=== PATIENT | female | born 1935 | race Hispanic/Latino ===

== ENCOUNTER 2022-03-17 17:04 | Inpatient (IN) | payer MEDICARE ==
--- NOTE | 2022-03-18 08:23 | Consultation ---
History of Present Illness - Reason for Consult Consult date: 03/18/22 Medical consult Requesting physician: CRISTAL BAINS - History of Present Illness Patient with significant past medical history of dementia dyslipidemia was admitted [facility] with history of danger to self failure of outpatient treatment and severe anxiety and depression hospitalist service was consulted for medical consult and medical management Past History Past Medical History: hyperlipidemia, other (Dementia, depression and anxiety) Past Surgical History: No surgical history Social history: denies: smoking, alcohol abuse, prescription drug abuse Family history: denies: no significant family history Medications and Allergies Allergies Allergy/AdvReac Type Severity Reaction Status Date / Time adhesive tape Allergy Unknown Verified 03/18/22 01:11 diazepam [From Valium] Allergy Unknown Verified 03/18/22 01:11 Latex, Natural Rubber Allergy Unknown Verified 03/18/22 01:11 meperidine [From Demerol] Allergy Unknown Verified 03/18/22 01:11 morphine Allergy Unknown Verified 03/18/22 01:11 procaine Allergy Unknown Verified 03/18/22 01:11 Home Medications Medication Instructions Recorded Confirmed Last Taken Type Atorvastatin [Lipitor Tab] 80 mg PO QHS 03/18/22 03/18/22 Unknown History Duloxetine HCl [Drizalma Sprinkle] 60 mg PO DAILY 03/18/22 03/18/22 Unknown History Esomeprazole Magnesium [NexIUM] 40 mg PO QDAY 03/18/22 03/18/22 Unknown History Melatonin [Melatonin 5MG CAP] 5 mg PO HS 03/18/22 03/18/22 Unknown History Memantine [Namenda] 10 mg PO BID 03/18/22 03/18/22 Unknown History Mirtazapine [Remeron] 15 mg PO HS 03/18/22 03/18/22 Unknown History QUEtiapine [SEROquel] 150 mg PO HS 03/18/22 03/18/22 Unknown History cephALEXin [Keflex] 500 mg PO Q12HR 03/18/22 03/18/22 Unknown History clonazePAM [ Klonopin] 0.5 mg PO BID 03/18/22 03/18/22 Unknown History Review of Systems Constitutional: no weight loss, no weight gain, no fatigue, no weakness Ears, nose, mouth and throat: no nasal congestion, no nasal discharge Cardiovascular: no chest pain, no orthopnea Respiratory: no cough, no shortness of breath Gastrointestinal: no abdominal pain, no nausea, no vomiting Genitourinary Female: no menorrhagia, no dysuria Musculoskeletal: no myalgias, no arthritis Integumentary: no rash, no lesions Neurological: no seizures, no syncope Psychiatric: anxiety, depression Endocrine: no cold intolerance, no heat intolerance Hematologic/Lymphatic: no easy bruising, no easy bleeding Allergic/Immunologic: no urticaria, no allergic rhinitis Exam - Constitutional Vitals: Temp Pulse Resp BP Pulse Ox 98.0 F 85 16 128/65 98 03/18/22 00:29 03/18/22 00:29 03/18/22 00:29 03/18/22 00:03/18/22 00:29 General appearance: Present: mild distress (Wants to go home), well-nourished - EENT Eyes: Present: PERRL, EOM intact - Neck Neck: Present: supple, normal ROM - Respiratory Respiratory effort: normal Respiratory: bilateral: diminished, negative: rales, rhonchi, wheezing - Cardiovascular Rhythm: regular Heart Sounds: Present: S1 & S2 - Extremities Extremities: no ischemia, No edema - Abdominal General gastrointestinal: Present: soft, non-tender, non-distended, normal bowel sounds - Integumentary Integumentary: Present: clear, warm - Musculoskeletal Musculoskeletal: strength equal bilaterally - Psychiatric Psychiatric: appropriate mood/affect, cooperative - Neurologic Neurologic: moves all extremities Results - Labs CBC & Chem 7: 03/18/22 13:16 03/18/22 13:16 Assessment and Plan -- Dementia; Can resume home medications, supportive care -- Dyslipidemia; Statin and low-cholesterol diet --Gastroesophageal reflux disease; Continue Protonix - Depression; Management per psychiatry -- DVT prophylaxis; SCDs while resting, ambulate as tolerated --Full CODE STATUS Closely monitor the patient and adjust management as needed Plan of care reviewed with the patient and her nurse Thank you for this consultation We will follow the patient along with you Call us with questions
--- NOTE | 2022-03-18 11:08 | History and Physical Report ---
GP History & Physical - History of Present Illness Date of admission: 03/17/22 Date of Examination: 03/18/22 Reason for Admission: Danger to self, Failure of Outpatient Treatment, Severe anxiety/depression History of Present Illness: The patient was seen today. Admission note states the patient was upset over her boyfriend breaking-up with her. When she asked her son to come over and talk to her he did not. She then told her son she was going to OD on her sleeping medication. Patient now states she "really didn't mean it" During the evaluation, the patient says she is doing fine. She says she made a stupid statement about hurting herself, but didn't mean it. She says she has a history of depression and anxiety, and takes cymbalta, and klonopin. The patient denies hallucinations. She says she lives at an Independent living facility. PAST PSYCHIATRIC HISTORY: Diagnoses: Depression Suicide attempts or Self-harm behavior: Denies Prior psychiatric hospitalizations: Denies Substance Abuse history: Denies Previous psychiatric medications tried: Cymbalta, klonopin Outpatient treatment: Yes PAST MEDICAL HISTORY: None reported Family Psychiatric History: None reported or documented SOCIAL HISTORY Marital Status: Living Arrangements: Independent living facility Employment Status: Retired Access to guns/weapons: Denies Education: History of Abuse: Denies Legal History: Denies REVIEW OF SYSTEMS Constitutional: Negative for weight loss ENT: Negative for stridor Respiratory: Negative for cough or hemoptysis All other systems reviewed and are negative MENTAL STATUS General Appearance and Behavior: age appropriate, good eye contact, cooperative, calm, pleasant Cooperation: Cooperative Psychomotor Behavior: within normal limits Mood: Calm Affect and affective range: Congruent with stated mood Thought Process: goal oriented Thought Content: reality oriented Speech: Normal volume and Regular rate and rhythm Suicidal Ideation: Denies Homicidal Ideation: Denies HI Hallucinations: Denies Delusions: None elicited Impulse Control: Fair Insight and Judgment: Good Memory: Good Attention: Attentive Orientation: alert and oriented Diagnoses: Major Depressive Disorder Treatment Plan Patient will be admitted for inpatient psychiatric evaluation, medication adjustment and close monitoring The patient's behavior, mood, sleep and appetite will be closely monitored. Patient will be enrolled in individual and group therapeutic sessions and enco uraged to attend. Patient will be provided with a safe and structured environment. Patient's physical health needs will be addressed by the Hospitalist. Hospitalist Consulted Labs including CBC, CMP, Lipid profile and Hemoglobin A1C ordered Social Assessment will be completed and the Reel Tender will work with patient and family to ensure a suitable and safe disposition Medication adjustment will be made as clinically indicated Continue home medications Usual Wellness Oriental Orthodox/Preservation: The patient agreed on the treatment plan, understood the risk, benefit, alternative treatment, potential consequence of no treatment, and gave informed consent. Legal Status: Involuntary Reaction to Hospitalization: Accepting Case staffed with Dr. Love Legal Status: Voluntary Reaction to Hospitalization: Accepting Medications and Allergies Allergies Allergy/AdvReac Type Severity Reaction Status Date / Time adhesive tape Allergy Unknown Verified 03/18/22 01:11 diazepam [From Valium] Allergy Unknown Verified 03/18/22 01:11 Latex, Natural Rubber Allergy Unknown Verified 03/18/22 01:11 meperidine [From Demerol] Allergy Unknown Verified 03/18/22 01:11 morphine Allergy Unknown Verified 03/18/22 01:11 procaine Allergy Unknown Verified 03/18/22 01:11 Home Medications Medication Instructions Recorded Confirmed Last Taken Type Atorvastatin [Lipitor Tab] 80 mg PO QHS 03/18/22 03/18/22 Unknown History Duloxetine HCl [Drizalma Sprinkle] 60 mg PO DAILY 03/18/22 03/18/22 Unknown History Esomeprazole Magnesium [NexIUM] 40 mg PO QDAY 03/18/22 03/18/22 Unknown History Melatonin [Melatonin 5MG CAP] 5 mg PO HS 03/18/22 03/18/22 Unknown History Memantine [Namenda] 10 mg PO BID 03/18/22 03/18/22 Unknown History Mirtazapine [Remeron] 15 mg PO HS 03/18/22 03/18/22 Unknown History QUEtiapine [SEROquel] 150 mg PO HS 03/18/22 03/18/22 Unknown History cephALEXin [Keflex] 500 mg PO Q12HR 03/18/22 03/18/22 Unknown History clonazePAM [ Klonopin] 0.5 mg PO BID 03/18/22 03/18/22 Unknown History Results - Results Labs/Vitals: Laboratory Last Values POC Glucose 89 mg/dL (70-105) 03/18/22 06:35 Last Vital Signs Temp 98.5 F 03/18/22 07:59 Pulse 89 03/18/22 07:59 Resp 16 03/18/22 07:59 BP 118/57 03/18/22 07:59 Pulse Ox 96 03/18/22 07:59 Physical Examination - Constitutional Vitals: Vital Signs Temp Pulse Resp BP Pulse Ox 98.5 F 89 16 118/57 96 03/18/22 07:59 03/18/22 07:59 03/18/22 07:59 03/18/22 07:59 03/18/22 07:59 Temperature -Last 24 Hours Temperature 98.5 F Temperature 98.0 F Mental Status Exam - Vital signs Last Vital Signs Temp 98.5 F 03/18/22 07:59 Pulse 89 03/18/22 07:59 Resp 16 03/18/22 07:59 BP 118/57 03/18/22 07:59 Pulse Ox 96 03/18/22 07:59 Physician Certification - Certification Statement Physician Certification Statement: This is an acknowledgement statement that ALVINA NEELY is a 86 year old F who requires inpatient psychiatric admission for treatment which could reasonably be expected to improve the patient's condition for Estimated period of time patient will need to remain in the hospital: [ ] Plan for post-hospital care: [ ]
[2022-03-18] MEDS ORDERED: NON-FORMULARY EACH (Esomeprazole Magnesium [Nexium] 40 MG Capsule.Dr) PO SCH (11:15)
[2022-03-18] MEDS ORDERED: NON-FORMULARY EACH (Duloxetine Hcl [Drizalma Sprinkle] 60 MG Cap.Dr.Spr) PO SCH (11:15)
[2022-03-18] MEDS: DULoxetine 30 MG CAP PO SCH (13:03)
[2022-03-18] MEDS: PANTOPRAZOLE 40 MG TAB PO SCH (13:03)
[2022-03-18 13:54] LABS: Basophils % (Auto) 0.4 % (0.0-1.8); Eosinophils % (Auto) 0.1 % (0.0-4.3); Hematocrit 40.5 % (30.3-42.9); Hemoglobin 13.5 gm/dl (10.1-14.3); Lymphocytes # (Auto) 1.4 K/mm3 (1.2-5.4); Lymphocytes % (Auto) 17.1 % (13.4-35.0); Mean Corpuscular HGB Conc 33 % (30-34); Mean Corpuscular Volume 90 fl (79-97); Monocytes # (Auto) 0.7 K/mm3 (0.0-0.8); Monocytes % (Auto) 9.2 % (0.0-7.3); Platelet Count 137 K/mm3 (140-440); Red Blood Count 4.49 M/mm3 (3.65-5.03); Red Cell Distribution Width 15.1 % (13.2-15.2)
[2022-03-18] MEDS: clonazePAM 0.5 MG TAB PO SCH ×2 (14:06→21:11)
[2022-03-18 14:11] LABS: Albumin 4.4 g/dL (3.9-5); Calcium 9.8 mg/dL (8.4-10.2); Chol/HDL Ratio 2.82 %
[2022-03-18] MEDS: MEMANTINE 10 MG TAB PO SCH (21:12)
[2022-03-18] MEDS: MIRTAZAPINE 15 MG TAB PO SCH (21:12)
[2022-03-18] MEDS: QUEtiapine 100 MG TAB PO SCH (21:12)
[2022-03-18] MEDS: MELATONIN 5 MG TAB PO SCH (21:12)
[2022-03-18] MEDS ORDERED: clonazePAM 0.5 MG TAB PO SCH (22:00)
[2022-03-18] MEDS ORDERED: NON-FORMULARY EACH (Atorvastatin [Lipitor] 80 MG Tablet) PO SCH (22:00)
[2022-03-18] MEDS ORDERED: NON-FORMULARY EACH (Melatonin [Melatonin 5mg Cap] 5 MG Capsule) PO SCH (22:00)
--- NOTE | 2022-03-19 08:57 | Progress Note ---
Subjective Date of service: 03/19/22 Principal diagnosis: MDD Subjective Comment: The patient was seen today. She is lying in bed asleep. She easily arouses. She says she slept well. She denies SI/HI and hallucinations. REVIEW OF SYSTEMS Constitutional: Negative for weight loss ENT: Negative for stridor Respiratory: Negative for cough or hemoptysis All other systems reviewed and are negative MENTAL STATUS General Appearance and Behavior: age appropriate, good eye contact, cooperative, calm, pleasant Cooperation: Cooperative Psychomotor Behavior: within normal limits Mood: Calm Affect and affective range: Congruent with stated mood Thought Process: goal oriented Thought Content: reality oriented Speech: Normal volume and Regular rate and rhythm Suicidal Ideation: Denies Homicidal Ideation: Denies HI Hallucinations: Denies Delusions: None elicited Impulse Control: Fair Insight and Judgment: Good Memory: Good Attention: Attentive Orientation: alert and oriented Diagnoses: Major Depressive Disorder Treatment Plan Patient will be admitted for inpatient psychiatric evaluation, medication adjustment and close monitoring The patient's behavior, mood, sleep and appetite will be closely monitored. Patient will be enrolled in individual and group therapeutic sessions and encouraged to attend. Patient will be provided with a safe and structured environment. Patient's physical health needs will be addressed by the Hospitalist. Hospitalist Consulted Labs including CBC, CMP, Lipid profile and Hemoglobin A1C ordered Social Assessment will be completed and the Director Loss Prevention will work with patient and family to ensure a suitable and safe disposition Medication adjustment will be made as clinically indicated Continue home medications Usual Wellness Rastafari/Preservation: The patient agreed on the treatment plan, understood the risk, benefit, alternative treatment, potential consequence of no treatment, and gave informed consent. Legal Status: Involuntary Reaction to Hospitalization: Accepting Case staffed with Dr. Love Medications and Allergies Allergies Allergy/AdvReac Type Severity Reaction Status Date / Time adhesive tape Allergy Unknown Verified 03/18/22 01:11 diazepam [From Valium] Allergy Unknown Verified 03/18/22 01:11 Latex, Natural Rubber Allergy Unknown Verified 03/18/22 01:11 meperidine [From Demerol] Allergy Unknown Verified 03/18/22 01:11 morphine Allergy Unknown Verified 03/18/22 01:11 procaine Allergy Unknown Verified 03/18/22 01:11 Home Medications Medication Instructions Recorded Confirmed Last Taken Type Atorvastatin [Lipitor Tab] 80 mg PO QHS 03/18/22 03/18/22 Unknown History Duloxetine HCl [Drizalma Sprinkle] 60 mg PO DAILY 03/18/22 03/18/22 Unknown History Esomeprazole Magnesium [NexIUM] 40 mg PO QDAY 03/18/22 03/18/22 Unknown History Melatonin [Melatonin 5MG CAP] 5 mg PO HS 03/18/22 03/18/22 Unknown History Memantine [Namenda] 10 mg PO BID 03/18/22 03/18/22 Unknown History Mirtazapine [Remeron] 15 mg PO HS 03/18/22 03/18/22 Unknown History QUEtiapine [SEROquel] 150 mg PO HS 03/18/22 03/18/22 Unknown History cephALEXin [Keflex] 500 mg PO Q12HR 03/18/22 03/18/22 Unknown History clonazePAM [ Klonopin] 0.5 mg PO BID 03/18/22 03/18/22 Unknown History Active Meds: Active Medications Atorvastatin Calcium (Atorvastatin 40 Mg Tab) 80 mg PO QHS [facility] Last Admin: 03/18/22 21:11 Dose: 80 mg Clonazepam (Clonazepam 0.5 Mg Tab) 0.5 mg PO BID [facility] Last Admin: 03/18/22 21:11 Dose: 0.5 mg Duloxetine HCl (Duloxetine 30 Mg Cap) 60 mg PO QDAY [facility] Last Admin: 03/18/22 13:03 Dose: 60 mg Melatonin (Melatonin 5 Mg Tab) 5 mg PO QHS [facility] Last Admin: 03/18/22 21:12 Dose: 5 mg Memantine (Memantine 10 Mg Tab) 10 mg PO BID [facility] Last Admin: 03/18/22 21:12 Dose: 10 mg Mirtazapine (Mirtazapine 15 Mg Tab) 15 mg PO [facility] Last Admin: 03/18/22 21:12 Dose: 15 mg Pantoprazole Sodium (Pantoprazole 40 Mg Tab) 40 mg PO DAILY [facility] Last Admin: 03/18/22 13:03 Dose: 40 mg Quetiapine Fumarate (Quetiapine 100 Mg Tab) 150 mg PO [facility] Last Admin: 03/18/22 21:12 Dose: 150 mg Results - Results Labs/Vitals: Laboratory Last Values WBC 8.1 K/mm3 (4.5-11.0) 03/18/22 13:16 RBC 4.49 M/mm3 (3.65-5.03) 03/18/22 13:16 Hgb 13.5 gm/dl (10.1-14.3) 03/18/22 13:16 Hct 40.5 % (30.3-42.9) 03/18/22 13:16 MCV 90 fl (79-97) 03/18/22 13:16 MCH 30 pg (28-32) 03/18/22 13:16 MCHC 33 % (30-34) 03/18/22 13:16 RDW 15.1 % (13.2-15.2) 03/18/22 13:16 Plt Count 137 K/mm3 (140-440) L 03/18/22 13:16 Lymph % (Auto) 17.1 % (13.4-35.0) 03/18/22 13:16 Snyder % (Auto) 9.2 % (0.0-7.3) H 03/18/22 13:16 Eos % (Auto) 0.1 % (0.0-4.3) 03/18/22 13:16 Baso % (Auto) 0.4 % (0.0-1.8) 03/18/22 13:16 Lymph # (Auto) 1.4 K/mm3 (1.2-5.4) 03/18/22 13:16 Snyder # (Auto) 0.7 K/mm3 (0.0-0.8) 03/18/22 13:16 Eos # (Auto) 0.0 K/mm3 (0.0-0.4) 03/18/22 13:16 Baso # (Auto) 0.0 K/mm3 (0.0-0.1) 03/18/22 13:16 Seg Neutrophils % 73.2 % (40.0-70.0) H 03/18/22 13:16 Seg Neutrophils # 5.9 K/mm3 (1.8-7.7) 03/18/22 13:16 Sodium 140 mmol/L (137-145) 03/18/22 13:16 Potassium 5.0 mmol/L (3.6-5.0) 03/18/22 13:16 Chloride 104.6 mmol/L (98-107) 03/18/22 13:16 Carbon Dioxide 24 mmol/L (22-30) 03/18/22 13:16 Anion Gap 16 mmol/L 03/18/22 13:16 BUN 23 mg/dL (7-17) H 03/18/22 13:16 Creatinine 1.1 mg/dL (0.6-1.2) 03/18/22 13:16 Estimated GFR 47 ml/min 03/18/22 13:16 BUN/Creatinine Ratio 21 % 03/18/22 13:16 Glucose 99 mg/dL (65-100) 03/18/22 13:16 POC Glucose 89 mg/dL (70-105) 03/18/22 06:35 Hemoglobin A1c 6.6 % (4-6) H 03/18/22 13:16 Calcium 9.8 mg/dL (8.4-10.2) 03/18/22 13:16 Total Bilirubin 0.70 mg/dL (0.1-1.2) 03/18/22 13:16 AST 62 units/L (5-40) H 03/18/22 13:16 ALT 50 units/L (7-56) 03/18/22 13:16 Alkaline Phosphatase 219 units/L (35-129) H 03/18/22 13:16 Total Protein 7.7 g/dL (6.3-8.2) 03/18/22 13:16 Albumin 4.4 g/dL (3.9-5) 03/18/22 13:16 Albumin/Globulin Ratio 1.3 % 03/18/22 13:16 Triglycerides 111 mg/dL (2-149) 03/18/22 13:16 Cholesterol 141 mg/dL (50-199) 03/18/22 13:16 LDL Cholesterol Direct 71 mg/dL (50-130) 03/18/22 13:16 HDL Cholesterol 50 mg/dL (40-59) 03/18/22 13:16 Cholesterol/HDL Ratio 2.82 % 03/18/22 13:16 TSH 1.010 mlU/mL (0.270-4.200) 03/18/22 13:16 Last Vital Signs Temp 97.6 F 03/19/22 07:15 Pulse 87 03/19/22 07:15 Resp 18 03/19/22 07:15 BP 118/64 03/19/22 07:15 Pulse Ox 95 03/19/22 07:15
[2022-03-19] MEDS: MEMANTINE 10 MG TAB PO SCH ×2 (09:06→21:45)
[2022-03-19] MEDS: PANTOPRAZOLE 40 MG TAB PO SCH (09:06)
[2022-03-19] MEDS: DULoxetine 30 MG CAP PO SCH (09:06)
[2022-03-19] MEDS: clonazePAM 0.5 MG TAB PO SCH ×2 (09:45→21:45)
[2022-03-19] MEDS: MIRTAZAPINE 15 MG TAB PO SCH (21:44)
[2022-03-19] MEDS: QUEtiapine 100 MG TAB PO SCH (21:44)
[2022-03-19] MEDS: MELATONIN 5 MG TAB PO SCH (21:45)
[2022-03-20] MEDS: cephALEXin 500 MG CAP PO SCH ×2 (10:16→22:02)
[2022-03-20] MEDS: PANTOPRAZOLE 40 MG TAB PO SCH (10:17)
[2022-03-20] MEDS: DULoxetine 30 MG CAP PO SCH (10:17)
[2022-03-20] MEDS: MEMANTINE 10 MG TAB PO SCH ×2 (10:18→22:02)
[2022-03-20] MEDS: clonazePAM 0.5 MG TAB PO SCH ×2 (10:18→22:02)
--- NOTE | 2022-03-20 13:12 | Progress Note ---
Subjective Date of service: 03/20/22 Principal diagnosis: MDD Subjective Comment: The patient was seen today. She says she slept well and her appetite is good. She denies SI/HI or hallucinations. She says she's starting to feel better. REVIEW OF SYSTEMS Constitutional: Negative for weight loss ENT: Negative for stridor Respiratory: Negative for cough or hemoptysis All other systems reviewed and are negative MENTAL STATUS General Appearance and Behavior: age appropriate, good eye contact, cooperative, calm, pleasant Cooperation: Cooperative Psychomotor Behavior: within normal limits Mood: Calm Affect and affective range: Congruent with stated mood Thought Process: goal oriented Thought Content: reality oriented Speech: Normal volume and Regular rate and rhythm Suicidal Ideation: Denies Homicidal Ideation: Denies HI Hallucinations: Denies Delusions: None elicited Impulse Control: Fair Insight and Judgment: Good Memory: Good Attention: Attentive Orientation: alert and oriented Diagnoses: Major Depressive Disorder Treatment Plan Patient will be admitted for inpatient psychiatric evaluation, medication adjustment and close monitoring The patient's behavior, mood, sleep and appetite will be closely monitored. Patient will be enrolled in individual and group therapeutic sessions and encouraged to attend. Patient will be provided with a safe and structured environment. Patient's physical health needs will be addressed by the Hospitalist. Hospitalist Consulted Labs including CBC, CMP, Lipid profile and Hemoglobin A1C ordered Social Assessment will be completed and the Manager [place] will work with patient and family to ensure a suitable and safe disposition Medication adjustment will be made as clinically indicated Continue home medications Usual Wellness Scientology/Preservation: The patient agreed on the treatment plan, understood the risk, benefit, alte rnative treatment, potential consequence of no treatment, and gave informed consent. Legal Status: Involuntary Reaction to Hospitalization: Accepting Case staffed with Dr. Love Medications and Allergies Allergies Allergy/AdvReac Type Severity Reaction Status Date / Time adhesive tape Allergy Unknown Verified 03/18/22 01:11 diazepam [From Valium] Allergy Unknown Verified 03/18/22 01:11 Latex, Natural Rubber Allergy Unknown Verified 03/18/22 01:11 meperidine [From Demerol] Allergy Unknown Verified 03/18/22 01:11 morphine Allergy Unknown Verified 03/18/22 01:11 procaine Allergy Unknown Verified 03/18/22 01:11 Home Medications Medication Instructions Recorded Confirmed Last Taken Type Atorvastatin [Lipitor Tab] 80 mg PO QHS 03/18/22 03/18/22 Unknown History Duloxetine HCl [Drizalma Sprinkle] 60 mg PO DAILY 03/18/22 03/18/22 Unknown History Esomeprazole Magnesium [NexIUM] 40 mg PO QDAY 03/18/22 03/18/22 Unknown History Melatonin [Melatonin 5MG CAP] 5 mg PO HS 03/18/22 03/18/22 Unknown History Memantine [Namenda] 10 mg PO BID 03/18/22 03/18/22 Unknown History Mirtazapine [Remeron] 15 mg PO HS 03/18/22 03/18/22 Unknown History QUEtiapine [SEROquel] 150 mg PO HS 03/18/22 03/18/22 Unknown History cephALEXin [Keflex] 500 mg PO Q12HR 03/18/22 03/18/22 Unknown History clonazePAM [ Klonopin] 0.5 mg PO BID 03/18/22 03/18/22 Unknown History Active Meds: Active Medications Atorvastatin Calcium (Atorvastatin 40 Mg Tab) 80 mg PO QHS [facility] Last Admin: 03/19/22 21:44 Dose: 80 mg Cephalexin (Cephalexin 500 Mg Cap) 500 mg PO Q12HR [facility]; Protocol Stop: 03/29/22 22:00 Last Admin: 03/20/22 10:16 Dose: 500 mg Clonazepam (Clonazepam 0.5 Mg Tab) 0.5 mg PO BID [facility] Last Admin: 03/20/22 10:18 Dose: 0.5 mg Duloxetine HCl (Duloxetine 30 Mg Cap) 60 mg PO QDAY [facility] Last Admin: 03/20/22 10:17 Dose: 60 mg Melatonin (Melatonin 5 Mg Tab) 5 mg PO QHS [facility] Last Admin: 03/19/22 21:45 Dose: 5 mg Memantine (Memantine 10 Mg Tab) 10 mg PO BID [facility] Last Admin: 03/20/22 10:18 Dose: 10 mg Mirtazapine (Mirtazapine 15 Mg Tab) 15 mg PO [facility] Last Admin: 03/19/22 21:44 Dose: 15 mg Pantoprazole Sodium (Pantoprazole 40 Mg Tab) 40 mg PO DAILY [facility] Last Admin: 03/20/22 10:17 Dose: 40 mg Quetiapine Fumarate (Quetiapine 100 Mg Tab) 150 mg PO [facility] Last Admin: 03/19/22 21:44 Dose: 150 mg Results - Results Labs/Vitals: Laboratory Last Values WBC 8.1 K/mm3 (4.5-11.0) 03/18/22 13:16 RBC 4.49 M/mm3 (3.65-5.03) 03/18/22 13:16 Hgb 13.5 gm/dl (10.1-14.3) 03/18/22 13:16 Hct 40.5 % (30.3-42.9) 03/18/22 13:16 MCV 90 fl (79-97) 03/18/22 13:16 MCH 30 pg (28-32) 03/18/22 13:16 MCHC 33 % (30-34) 03/18/22 13:16 RDW 15.1 % (13.2-15.2) 03/18/22 13:16 Plt Count 137 K/mm3 (140-440) L 03/18/22 13:16 Lymph % (Auto) 17.1 % (13.4-35.0) 03/18/22 13:16 Cocke % (Auto) 9.2 % (0.0-7.3) H 03/18/22 13:16 Eos % (Auto) 0.1 % (0.0-4.3) 03/18/22 13:16 Baso % (Auto) 0.4 % (0.0-1.8) 03/18/22 13:16 Lymph # (Auto) 1.4 K/mm3 (1.2-5.4) 03/18/22 13:16 [place]ke # (Auto) 0.7 K/mm3 (0.0-0.8) 03/18/22 13:16 Eos # (Auto) 0.0 K/mm3 (0.0-0.4) 03/18/22 13:16 Baso # (Auto) 0.0 K/mm3 (0.0-0.1) 03/18/22 13:16 Seg Neutrophils % 73.2 % (40.0-70.0) H 03/18/22 13:16 Seg Neutrophils # 5.9 K/mm3 (1.8-7.7) 03/18/22 13:16 Sodium 140 mmol/L (137-145) 03/18/22 13:16 Potassium 5.0 mmol/L (3.6-5.0) 03/18/22 13:16 Chloride 104.6 mmol/L (98-107) 03/18/22 13:16 Carbon Dioxide 24 mmol/L (22-30) 03/18/22 13:16 Anion Gap 16 mmol/L 03/18/22 13:16 BUN 23 mg/dL (7-17) H 03/18/22 13:16 Creatinine 1.1 mg/dL (0.6-1.2) 03/18/22 13:16 Estimated GFR 47 ml/min 03/18/22 13:16 BUN/Creatinine Ratio 21 % 03/18/22 13:16 Glucose 99 mg/dL (65-100) 03/18/22 13:16 POC Glucose 89 mg/dL (70-105) 03/18/22 06:35 Hemoglobin A1c 6.6 % (4-6) H 03/18/22 13:16 Calcium 9.8 mg/dL (8.4-10.2) 03/18/22 13:16 Total Bilirubin 0.70 mg/dL (0.1-1.2) 03/18/22 13:16 AST 62 units/L (5-40) H 03/18/22 13:16 ALT 50 units/L (7-56) 03/18/22 13:16 Alkaline Phosphatase 219 units/L (35-129) H 03/18/22 13:16 Total Protein 7.7 g/dL (6.3-8.2) 03/18/22 13:16 Albumin 4.4 g/dL (3.9-5) 03/18/22 13:16 Albumin/Globulin Ratio 1.3 % 03/18/22 13:16 Triglycerides 111 mg/dL (2-149) 03/18/22 13:16 Cholesterol 141 mg/dL (50-199) 03/18/22 13:16 LDL Cholesterol Direct 71 mg/dL (50-130) 03/18/22 13:16 HDL Cholesterol 50 mg/dL (40-59) 03/18/22 13:16 Cholesterol/HDL Ratio 2.82 % 03/18/22 13:16 TSH 1.010 mlU/mL (0.270-4.200) 03/18/22 13:16 Last Vital Signs Temp 98.3 F 03/19/22 20:57 Pulse 85 03/19/22 20:57 Resp 16 03/19/22 20:57 BP 113/65 03/19/22 20:57 Pulse Ox 95 03/19/22 20:57
--- NOTE | 2022-03-20 16:54 | Progress Note ---
Assessment and Plan Assessment and plan: -- Dementia; C continue home medications, supportive care -- Dyslipidemia; Statin and low-cholesterol diet --Gastroesophageal reflux disease; Continue Protonix - Depression; Management per psychiatry -- DVT prophylaxis; SCDs while resting, ambulate as tolerated --Full CODE STATUS Closely monitor the patient and adjust management as needed Plan of care reviewed with the patient and her nurse Thank you for this consultation We will follow the patient along with you Call us with questions History Interval history: I have seen and examined the patient in her room on [facility] Patient is sleeping easily awakens Reports that she is tired No other complaints Hospitalist Physical - Physical exam Narrative exam: Patient is well-nourished, comfortable No agitation or aggression Vital signs reviewed - Constitutional Vitals: Temp Pulse Resp BP Pulse Ox 98.3 F 85 16 113/65 95 03/19/22 20:57 03/19/22 20:57 03/19/22 20:57 03/19/22 20:57 03/19/22 20:57 General appearance: Present: no acute distress, well-nourished - EENT Eyes: Present: PERRL, EOM intact - Neck Neck: Present: supple - Respiratory Respiratory effort: normal Respiratory: bilateral: diminished, negative: rales, rhonchi, wheezing - Cardiovascular Rhythm: regular Heart Sounds: Present: S1 & S2 - Extremities Extremities: no ischemia, No edema - Abdominal General gastrointestinal: soft, non-tender, non-distended, normal bowel sounds - Integumentary Integumentary: Present: clear, warm - Psychiatric Psychiatric: appropriate mood/affect, cooperative - Neurologic Neurologic: moves all extremities Results - Labs CBC & Chem 7: 03/18/22 13:16 03/18/22 13:16 Labs: Laboratory Last Values WBC 8.1 K/mm3 (4.5-11.0) 03/18/22 13:16 RBC 4.49 M/mm3 (3.65-5.03) 03/18/22 13:16 Hgb 13.5 gm/dl (10.1-14.3) 03/18/22 13:16 Hct 40.5 % (30.3-42.9) 03/18/22 13:16 MCV 90 fl (79-97) 03/18/22 13:16 MCH 30 pg (28-32) 03/18/22 13:16 MCHC 33 % (30-34) 03/18/22 13:16 RDW 15.1 % (13.2-15.2) 03/18/22 13:16 Plt Count 137 K/mm3 (140-440) L 03/18/22 13:16 Lymph % (Auto) 17.1 % (13.4-35.0) 03/18/22 13:16 [place] % (Auto) 9.2 % (0.0-7.3) H 03/18/22 13:16 Eos % (Auto) 0.1 % (0.0-4.3) 03/18/22 13:16 Baso % (Auto) 0.4 % (0.0-1.8) 03/18/22 13:16 Lymph # (Auto) 1.4 K/mm3 (1.2-5.4) 03/18/22 13:16 [place] # (Auto) 0.7 K/mm3 (0.0-0.8) 03/18/22 13:16 Eos # (Auto) 0.0 K/mm3 (0.0-0.4) 03/18/22 13:16 Baso # (Auto) 0.0 K/mm3 (0.0-0.1) 03/18/22 13:16 Seg Neutrophils % 73.2 % (40.0-70.0) H 03/18/22 13:16 Seg Neutrophils # 5.9 K/mm3 (1.8-7.7) 03/18/22 13:16 Sodium 140 mmol/L (137-145) 03/18/22 13:16 Potassium 5.0 mmol/L (3.6-5.0) 03/18/22 13:16 Chloride 104.6 mmol/L (98-107) 03/18/22 13:16 Carbon Dioxide 24 mmol/L (22-30) 03/18/22 13:16 Anion Gap 16 mmol/L 03/18/22 13:16 BUN 23 mg/dL (7-17) H 03/18/22 13:16 Creatinine 1.1 mg/dL (0.6-1.2) 03/18/22 13:16 Estimated GFR 47 ml/min 03/18/22 13:16 BUN/Creatinine Ratio 21 % 03/18/22 13:16 Glucose 99 mg/dL (65-100) 03/18/22 13:16 POC Glucose 89 mg/dL (70-105) 03/18/22 06:35 Hemoglobin A1c 6.6 % (4-6) H 03/18/22 13:16 Calcium 9.8 mg/dL (8.4-10.2) 03/18/22 13:16 Total Bilirubin 0.70 mg/dL (0.1-1.2) 03/18/22 13:16 AST 62 units/L (5-40) H 03/18/22 13:16 ALT 50 units/L (7-56) 03/18/22 13:16 Alkaline Phosphatase 219 units/L (35-129) H 03/18/22 13:16 Total Protein 7.7 g/dL (6.3-8.2) 03/18/22 13:16 Albumin 4.4 g/dL (3.9-5) 03/18/22 13:16 Albumin/Globulin Ratio 1.3 % 03/18/22 13:16 Triglycerides 111 mg/dL (2-149) 03/18/22 13:16 Cholesterol 141 mg/dL (50-199) 03/18/22 13:16 LDL Cholesterol Direct 71 mg/dL (50-130) 03/18/22 13:16 HDL Cholesterol 50 mg/dL (40-59) 03/18/22 13:16 Cholesterol/HDL Ratio 2.82 % 03/18/22 13:16 TSH 1.010 mlU/mL (0.270-4.200) 03/18/22 13:16 Mcqueen/IV: Voiding Method Toilet Active Medications - Current Medications Current Medications: Generic Name Dose Route Start Last Admin Trade Name Freq PRN Reason Stop Dose Admin Atorvastatin Calcium 80 mg 03/18/22 22:00 03/19/22 21:44 Atorvastatin 40 Mg Tab PO 80 mg QHS [facility] Administration Cephalexin 500 mg 03/20/22 10:00 03/20/22 10:16 Cephalexin 500 Mg Cap PO 03/29/22 22:00 500 mg Q12HR [facility] Administration Protocol Clonazepam 0.5 mg 03/18/22 14:00 03/20/22 10:18 Clonazepam 0.5 Mg Tab PO 0.5 mg BID [facility] Administration Duloxetine HCl 60 mg 03/18/22 13:00 03/20/22 10:17 Duloxetine 30 Mg Cap PO 60 mg QDAY [facility] Administration Melatonin 5 mg 03/18/22 22:00 03/19/22 21:45 Melatonin 5 Mg Tab PO 5 mg QHS [facility] Administration Memantine 10 mg 03/18/22 22:00 03/20/22 10:18 Memantine 10 Mg Tab PO 10 mg BID [facility] Administration Mirtazapine 15 mg 03/18/22 22:00 03/19/22 21:44 Mirtazapine 15 Mg Tab PO 15 mg HS [facility] Administration Pantoprazole Sodium 40 mg 03/18/22 13:00 03/20/22 10:17 Pantoprazole 40 Mg Tab PO 40 mg DAILY [facility] Administration Quetiapine Fumarate 150 mg 03/18/22 22:00 03/19/22 21:44 Quetiapine 100 Mg Tab PO 150 mg HS [facility] Administration
--- NOTE | 2022-03-20 17:07 | Progress Note ---
Assessment and Plan Assessment and plan: -- Dementia; C continue home medications, supportive care -- Dyslipidemia; Statin and low-cholesterol diet --Gastroesophageal reflux disease; Continue Protonix - Depression; Management per psychiatry -- DVT prophylaxis; SCDs while resting, ambulate as tolerated --Full CODE STATUS Closely monitor the patient and adjust management as needed Plan of care reviewed with the patient and her nurse Thank you for this consultation We will follow the patient along with you Call us with questions History Interval history: I have see and examined the patient in [facility] Patient is sleeping, easily awakens No new complaints, Vital signs noted No new overnight events reported by the nursing staff Hospitalist Physical - Constitutional Vitals: Temp Pulse Resp BP Pulse Ox 98.3 F 85 16 113/65 95 03/19/22 20:57 03/19/22 20:57 03/19/22 20:57 03/19/22 20:57 03/19/22 20:57 General appearance: Present: no acute distress, well-nourished - EENT Eyes: Present: PERRL, EOM intact ENT: other (Patient is sleeping did not do medical exam) - Neck Neck: Present: supple, normal ROM, other (Patient is sleeping did not do physical exam) - Respiratory Respiratory effort: normal Respiratory: bilateral: diminished, negative: rales, rhonchi, wheezing - Cardiovascular Rhythm: regular Heart Sounds: Present: S1 & S2 - Extremities Extremities: no ischemia, No edema Extremity abnormal: other (Patient is sleeping did not do physical examination) - Abdominal General gastrointestinal: soft, non-tender, non-distended, normal bowel sounds - Integumentary Integumentary: Present: clear, warm - Psychiatric Psychiatric: appropriate mood/affect - Neurologic Neurologic: moves all extremities Results - Labs CBC & Chem 7: 03/18/22 13:16 03/18/22 13:16 Labs: Laboratory Last Values WBC 8.1 K/mm3 (4.5-11.0) 03/18/22 13:16 RBC 4.49 M/mm3 (3.65-5.03) 03/18/22 13:16 Hgb 13.5 gm/dl (10.1-14.3) 03/18/22 13:16 Hct 40.5 % (30.3-42.9) 03/18/22 13:16 MCV 90 fl (79-97) 03/18/22 13:16 MCH 30 pg (28-32) 03/18/22 13:16 MCHC 33 % (30-34) 03/18/22 13:16 RDW 15.1 % (13.2-15.2) 03/18/22 13:16 Plt Count 137 K/mm3 (140-440) L 03/18/22 13:16 Lymph % (Auto) 17.1 % (13.4-35.0) 03/18/22 13:16 [place] % (Auto) 9.2 % (0.0-7.3) H 03/18/22 13:16 Eos % (Auto) 0.1 % (0.0-4.3) 03/18/22 13:16 Baso % (Auto) 0.4 % (0.0-1.8) 03/18/22 13:16 Lymph # (Auto) 1.4 K/mm3 (1.2-5.4) 03/18/22 13:16 [place] # (Auto) 0.7 K/mm3 (0.0-0.8) 03/18/22 13:16 Eos # (Auto) 0.0 K/mm3 (0.0-0.4) 03/18/22 13:16 Baso # (Auto) 0.0 K/mm3 (0.0-0.1) 03/18/22 13:16 Seg Neutrophils % 73.2 % (40.0-70.0) H 03/18/22 13:16 Seg Neutrophils # 5.9 K/mm3 (1.8-7.7) 03/18/22 13:16 Sodium 140 mmol/L (137-145) 03/18/22 13:16 Potassium 5.0 mmol/L (3.6-5.0) 03/18/22 13:16 Chloride 104.6 mmol/L (98-107) 03/18/22 13:16 Carbon Dioxide 24 mmol/L (22-30) 03/18/22 13:16 Anion Gap 16 mmol/L 03/18/22 13:16 BUN 23 mg/dL (7-17) H 03/18/22 13:16 Creatinine 1.1 mg/dL (0.6-1.2) 03/18/22 13:16 Estimated GFR 47 ml/min 03/18/22 13:16 BUN/Creatinine Ratio 21 % 03/18/22 13:16 Glucose 99 mg/dL (65-100) 03/18/22 13:16 POC Glucose 89 mg/dL (70-105) 03/18/22 06:35 Hemoglobin A1c 6.6 % (4-6) H 03/18/22 13:16 Calcium 9.8 mg/dL (8.4-10.2) 03/18/22 13:16 Total Bilirubin 0.70 mg/dL (0.1-1.2) 03/18/22 13:16 AST 62 units/L (5-40) H 03/18/22 13:16 ALT 50 units/L (7-56) 03/18/22 13:16 Alkaline Phosphatase 219 units/L (35-129) H 03/18/22 13:16 Total Protein 7.7 g/dL (6.3-8.2) 03/18/22 13:16 Albumin 4.4 g/dL (3.9-5) 03/18/22 13:16 Albumin/Globulin Ratio 1.3 % 03/18/22 13:16 Triglycerides 111 mg/dL (2-149) 03/18/22 13:16 Cholesterol 141 mg/dL (50-199) 03/18/22 13:16 LDL Cholesterol Direct 71 mg/dL (50-130) 03/18/22 13:16 HDL Cholesterol 50 mg/dL (40-59) 03/18/22 13:16 Cholesterol/HDL Ratio 2.82 % 03/18/22 13:16 TSH 1.010 mlU/mL (0.270-4.200) 03/18/22 13:16 Mcqueen/IV: Voiding Method Toilet Active Medications - Current Medications Current Medications: Generic Name Dose Route Start Last Admin Trade Name Freq PRN Reason Stop Dose Admin Atorvastatin Calcium 80 mg 03/18/22 22:00 03/19/22 21:44 Atorvastatin 40 Mg Tab PO 80 mg QHS [facility] Administration Cephalexin 500 mg 03/20/22 10:00 03/20/22 10:16 Cephalexin 500 Mg Cap PO 03/29/22 22:00 500 mg Q12HR [facility] Administration Protocol Clonazepam 0.5 mg 03/18/22 14:00 03/20/22 10:18 Clonazepam 0.5 Mg Tab PO 0.5 mg BID [facility] Administration Duloxetine HCl 60 mg 03/18/22 13:00 03/20/22 10:17 Duloxetine 30 Mg Cap PO 60 mg QDAY [facility] Administration Melatonin 5 mg 03/18/22 22:00 03/19/22 21:45 Melatonin 5 Mg Tab PO 5 mg QHS [facility] Administration Memantine 10 mg 03/18/22 22:00 03/20/22 10:18 Memantine 10 Mg Tab PO 10 mg BID [facility] Administration Mirtazapine 15 mg 03/18/22 22:00 03/19/22 21:44 Mirtazapine 15 Mg Tab PO 15 mg HS [facility] Administration Pantoprazole Sodium 40 mg 03/18/22 13:00 03/20/22 10:17 Pantoprazole 40 Mg Tab PO 40 mg DAILY [facility] Administration Quetiapine Fumarate 150 mg 03/18/22 22:00 03/19/22 21:44 Quetiapine 100 Mg Tab PO 150 mg HS [facility]EL Administration
[2022-03-20] MEDS: QUEtiapine 100 MG TAB PO SCH (22:02)
[2022-03-20] MEDS: MELATONIN 5 MG TAB PO SCH (22:02)
[2022-03-20] MEDS: MIRTAZAPINE 15 MG TAB PO SCH (22:02)
[2022-03-21] MEDS: DULoxetine 30 MG CAP PO SCH (09:27)
[2022-03-21] MEDS: cephALEXin 500 MG CAP PO SCH ×2 (09:28→21:30)
[2022-03-21] MEDS: MEMANTINE 10 MG TAB PO SCH ×2 (09:28→21:31)
[2022-03-21] MEDS: clonazePAM 0.5 MG TAB PO SCH ×2 (09:28→21:30)
[2022-03-21] MEDS: PANTOPRAZOLE 40 MG TAB PO SCH (09:28)
--- NOTE | 2022-03-21 12:13 | Progress Note ---
Subjective Date of service: 03/21/22 Principal diagnosis: MDD Subjective Comment: The patient was seen today. She says things are going fine for her. She says "I'm fine, just waiting on you guys." She denies SI/HI or hallucinations. REVIEW OF SYSTEMS Constitutional: Negative for weight loss ENT: Negative for stridor Respiratory: Negative for cough or hemoptysis All other systems reviewed and are negative MENTAL STATUS General Appearance and Behavior: age appropriate, good eye contact, cooperative, calm, pleasant Cooperation: Cooperative Psychomotor Behavior: within normal limits Mood: Calm Affect and affective range: Congruent with stated mood Thought Process: goal oriented Thought Content: reality oriented Speech: Normal volume and Regular rate and rhythm Suicidal Ideation: Denies Homicidal Ideation: Denies HI Hallucinations: Denies Delusions: None elicited Impulse Control: Fair Insight and Judgment: Good Memory: Good Attention: Attentive Orientation: alert and oriented Diagnoses: Major Depressive Disorder Treatment Plan Patient will be admitted for inpatient psychiatric evaluation, medication adjustment and close monitoring The patient's behavior, mood, sleep and appetite will be closely monitored. Patient will be enrolled in individual and group therapeutic sessions and encouraged to attend. Patient will be provided with a safe and structured environment. Patient's physical health needs will be addressed by the Hospitalist. Hospitalist Consulted Labs including CBC, CMP, Lipid profile and Hemoglobin A1C ordered Social Assessment will be completed and the Gastroenterology Manager will work with patient and family to ensure a suitable and safe disposition Medication adjustment will be made as clinically indicated Continue home medications Usual Wellness Mandaeism/Preservation: The patient agreed on the treatment plan, understood the risk, benefit, alterna tive treatment, potential consequence of no treatment, and gave informed consent. Legal Status: Involuntary Reaction to Hospitalization: Accepting Case staffed with Dr. Love Medications and Allergies Allergies Allergy/AdvReac Type Severity Reaction Status Date / Time adhesive tape Allergy Unknown Verified 03/18/22 01:11 diazepam [From Valium] Allergy Unknown Verified 03/18/22 01:11 Latex, Natural Rubber Allergy Unknown Verified 03/18/22 01:11 meperidine [From Demerol] Allergy Unknown Verified 03/18/22 01:11 morphine Allergy Unknown Verified 03/18/22 01:11 procaine Allergy Unknown Verified 03/18/22 01:11 Home Medications Medication Instructions Recorded Confirmed Last Taken Type Atorvastatin [Lipitor Tab] 80 mg PO QHS 03/18/22 03/18/22 Unknown History Duloxetine HCl [Drizalma Sprinkle] 60 mg PO DAILY 03/18/22 03/18/22 Unknown History Esomeprazole Magnesium [NexIUM] 40 mg PO QDAY 03/18/22 03/18/22 Unknown History Melatonin [Melatonin 5MG CAP] 5 mg PO HS 03/18/22 03/18/22 Unknown History Memantine [Namenda] 10 mg PO BID 03/18/22 03/18/22 Unknown History Mirtazapine [Remeron] 15 mg PO HS 03/18/22 03/18/22 Unknown History QUEtiapine [SEROquel] 150 mg PO HS 03/18/22 03/18/22 Unknown History cephALEXin [Keflex] 500 mg PO Q12HR 03/18/22 03/18/22 Unknown History clonazePAM [ Klonopin] 0.5 mg PO BID 03/18/22 03/18/22 Unknown History Active Meds: Active Medications Atorvastatin Calcium (Atorvastatin 40 Mg Tab) 80 mg PO QHS [facility] Last Admin: 03/20/22 22:02 Dose: 80 mg Cephalexin (Cephalexin 500 Mg Cap) 500 mg PO Q12HR [facility]; Protocol Stop: 03/29/22 22:00 Last Admin: 03/21/22 09:28 Dose: 500 mg Clonazepam (Clonazepam 0.5 Mg Tab) 0.5 mg PO BID [facility] Last Admin: 03/21/22 09:28 Dose: 0.5 mg Duloxetine HCl (Duloxetine 30 Mg Cap) 60 mg PO QDAY [facility] Last Admin: 03/21/22 09:27 Dose: 60 mg Melatonin (Melatonin 5 Mg Tab) 5 mg PO QHS [facility] Last Admin: 03/20/22 22:02 Dose: 5 mg Memantine (Memantine 10 Mg Tab) 10 mg PO BID [facility] Last Admin: 03/21/22 09:28 Dose: 10 mg Mirtazapine (Mirtazapine 15 Mg Tab) 15 mg PO [facility] Last Admin: 03/20/22 22:02 Dose: 15 mg Pantoprazole Sodium (Pantoprazole 40 Mg Tab) 40 mg PO DAILY [facility] Last Admin: 03/21/22 09:28 Dose: 40 mg Quetiapine Fumarate (Quetiapine 100 Mg Tab) 150 mg PO [facility] Last Admin: 03/20/22 22:02 Dose: 150 mg Results - Results Labs/Vitals: Laboratory Last Values WBC 8.1 K/mm3 (4.5-11.0) 03/18/22 13:16 RBC 4.49 M/mm3 (3.65-5.03) 03/18/22 13:16 Hgb 13.5 gm/dl (10.1-14.3) 03/18/22 13:16 Hct 40.5 % (30.3-42.9) 03/18/22 13:16 MCV 90 fl (79-97) 03/18/22 13:16 MCH 30 pg (28-32) 03/18/22 13:16 MCHC 33 % (30-34) 03/18/22 13:16 RDW 15.1 % (13.2-15.2) 03/18/22 13:16 Plt Count 137 K/mm3 (140-440) L 03/18/22 13:16 Lymph % (Auto) 17.1 % (13.4-35.0) 03/18/22 13:16 [place] % (Auto) 9.2 % (0.0-7.3) H 03/18/22 13:16 Eos % (Auto) 0.1 % (0.0-4.3) 03/18/22 13:16 Baso % (Auto) 0.4 % (0.0-1.8) 03/18/22 13:16 Lymph # (Auto) 1.4 K/mm3 (1.2-5.4) 03/18/22 13:16 [place] # (Auto) 0.7 K/mm3 (0.0-0.8) 03/18/22 13:16 Eos # (Auto) 0.0 K/mm3 (0.0-0.4) 03/18/22 13:16 Baso # (Auto) 0.0 K/mm3 (0.0-0.1) 03/18/22 13:16 Seg Neutrophils % 73.2 % (40.0-70.0) H 03/18/22 13:16 Seg Neutrophils # 5.9 K/mm3 (1.8-7.7) 03/18/22 13:16 Sodium 140 mmol/L (137-145) 03/18/22 13:16 Potassium 5.0 mmol/L (3.6-5.0) 03/18/22 13:16 Chloride 104.6 mmol/L (98-107) 03/18/22 13:16 Carbon Dioxide 24 mmol/L (22-30) 03/18/22 13:16 Anion Gap 16 mmol/L 03/18/22 13:16 BUN 23 mg/dL (7-17) H 03/18/22 13:16 Creatinine 1.1 mg/dL (0.6-1.2) 03/18/22 13:16 Estimated GFR 47 ml/min 03/18/22 13:16 BUN/Creatinine Ratio 21 % 03/18/22 13:16 Glucose 99 mg/dL (65-100) 03/18/22 13:16 POC Glucose 89 mg/dL (70-105) 03/18/22 06:35 Hemoglobin A1c 6.6 % (4-6) H 03/18/22 13:16 Calcium 9.8 mg/dL (8.4-10.2) 03/18/22 13:16 Total Bilirubin 0.70 mg/dL (0.1-1.2) 03/18/22 13:16 AST 62 units/L (5-40) H 03/18/22 13:16 ALT 50 units/L (7-56) 03/18/22 13:16 Alkaline Phosphatase 219 units/L (35-129) H 03/18/22 13:16 Total Protein 7.7 g/dL (6.3-8.2) 03/18/22 13:16 Albumin 4.4 g/dL (3.9-5) 03/18/22 13:16 Albumin/Globulin Ratio 1.3 % 03/18/22 13:16 Triglycerides 111 mg/dL (2-149) 03/18/22 13:16 Cholesterol 141 mg/dL (50-199) 03/18/22 13:16 LDL Cholesterol Direct 71 mg/dL (50-130) 03/18/22 13:16 HDL Cholesterol 50 mg/dL (40-59) 03/18/22 13:16 Cholesterol/HDL Ratio 2.82 % 03/18/22 13:16 TSH 1.010 mlU/mL (0.270-4.200) 03/18/22 13:16 Last Vital Signs Temp 98.2 F 03/20/22 19:12 Pulse 90 03/20/22 19:12 Resp 17 03/20/22 19:12 BP 124/59 03/20/22 19:12 Pulse Ox 97 03/20/22 19:12
--- NOTE | 2022-03-21 20:36 | Progress Note ---
Assessment and Plan Assessment and plan: -- Dementia; C continue home medications, supportive care -- Dyslipidemia; Statin and low-cholesterol diet --Gastroesophageal reflux disease; Continue Protonix - Depression; Management per psychiatry -- DVT prophylaxis; SCDs while resting, ambulate as tolerated --Full CODE STATUS Closely monitor the patient and adjust management as needed Plan of care reviewed with the patient and her nurse We will follow the patient along with you Call us with questions History Interval history: I have seen and examined the patient in the day room No new overnight events reported by the nursing Patient is cheerful and happy in the activities Wants to know when she can go home No new complaints Vital signs reviewed Hospitalist Physical - Constitutional Vitals: Temp Pulse Resp BP Pulse Ox 98.2 F 90 17 124/59 97 03/20/22 19:12 03/20/22 19:12 03/20/22 19:12 03/20/22 19:12 03/20/22 19:12 General appearance: Present: no acute distress, well-nourished, other (Cheerful) - EENT Eyes: Present: PERRL, EOM intact - Neck Neck: Present: supple, normal ROM - Respiratory Respiratory effort: normal Respiratory: bilateral: diminished, negative: rales, rhonchi, wheezing - Cardiovascular Rhythm: regular Heart Sounds: Present: S1 & S2 - Extremities Extremities: no ischemia, No edema - Abdominal General gastrointestinal: soft, non-tender, non-distended, normal bowel sounds - Integumentary Integumentary: Present: clear - Psychiatric Psychiatric: appropriate mood/affect, cooperative - Neurologic Neurologic: moves all extremities Results - Labs CBC & Chem 7: 03/18/22 13:16 03/18/22 13:16 Labs: Laboratory Last Values WBC 8.1 K/mm3 (4.5-11.0) 03/18/22 13:16 RBC 4.49 M/mm3 (3.65-5.03) 03/18/22 13:16 Hgb 13.5 gm/dl (10.1-14.3) 03/18/22 13:16 Hct 40.5 % (30.3-42.9) 03/18/22 13:16 MCV 90 fl (79-97) 03/18/22 13:16 MCH 30 pg (28-32) 03/18/22 13:16 MCHC 33 % (30-34) 03/18/22 13:16 RDW 15.1 % (13.2-15.2) 03/18/22 13:16 Plt Count 137 K/mm3 (140-440) L 03/18/22 13:16 Lymph % (Auto) 17.1 % (13.4-35.0) 03/18/22 13:16 [place] % (Auto) 9.2 % (0.0-7.3) H 03/18/22 13:16 Eos % (Auto) 0.1 % (0.0-4.3) 03/18/22 13:16 Baso % (Auto) 0.4 % (0.0-1.8) 03/18/22 13:16 Lymph # (Auto) 1.4 K/mm3 (1.2-5.4) 03/18/22 13:16 [place] # (Auto) 0.7 K/mm3 (0.0-0.8) 03/18/22 13:16 Eos # (Auto) 0.0 K/mm3 (0.0-0.4) 03/18/22 13:16 Baso # (Auto) 0.0 K/mm3 (0.0-0.1) 03/18/22 13:16 Seg Neutrophils % 73.2 % (40.0-70.0) H 03/18/22 13:16 Seg Neutrophils # 5.9 K/mm3 (1.8-7.7) 03/18/22 13:16 Sodium 140 mmol/L (137-145) 03/18/22 13:16 Potassium 5.0 mmol/L (3.6-5.0) 03/18/22 13:16 Chloride 104.6 mmol/L (98-107) 03/18/22 13:16 Carbon Dioxide 24 mmol/L (22-30) 03/18/22 13:16 Anion Gap 16 mmol/L 03/18/22 13:16 BUN 23 mg/dL (7-17) H 03/18/22 13:16 Creatinine 1.1 mg/dL (0.6-1.2) 03/18/22 13:16 Estimated GFR 47 ml/min 03/18/22 13:16 BUN/Creatinine Ratio 21 % 03/18/22 13:16 Glucose 99 mg/dL (65-100) 03/18/22 13:16 POC Glucose 89 mg/dL (70-105) 03/18/22 06:35 Hemoglobin A1c 6.6 % (4-6) H 03/18/22 13:16 Calcium 9.8 mg/dL (8.4-10.2) 03/18/22 13:16 Total Bilirubin 0.70 mg/dL (0.1-1.2) 03/18/22 13:16 AST 62 units/L (5-40) H 03/18/22 13:16 ALT 50 units/L (7-56) 03/18/22 13:16 Alkaline Phosphatase 219 units/L (35-129) H 03/18/22 13:16 Total Protein 7.7 g/dL (6.3-8.2) 03/18/22 13:16 Albumin 4.4 g/dL (3.9-5) 03/18/22 13:16 Albumin/Globulin Ratio 1.3 % 03/18/22 13:16 Triglycerides 111 mg/dL (2-149) 03/18/22 13:16 Cholesterol 141 mg/dL (50-199) 03/18/22 13:16 LDL Cholesterol Direct 71 mg/dL (50-130) 03/18/22 13:16 HDL Cholesterol 50 mg/dL (40-59) 03/18/22 13:16 Cholesterol/HDL Ratio 2.82 % 03/18/22 13:16 TSH 1.010 mlU/mL (0.270-4.200) 03/18/22 13:16 Mcqueen/IV: Voiding Method Toilet Active Medications - Current Medications Current Medications: Generic Name Dose Route Start Last Admin Trade Name Freq PRN Reason Stop Dose Admin Atorvastatin Calcium 80 mg 03/18/22 22:00 03/20/22 22:02 Atorvastatin 40 Mg Tab PO 80 mg QHS [facility] Administration Cephalexin 500 mg 03/20/22 10:00 03/21/22 09:28 Cephalexin 500 Mg Cap PO 03/29/22 22:00 500 mg Q12HR [facility] Administration Protocol Clonazepam 0.5 mg 03/18/22 14:00 03/21/22 09:28 Clonazepam 0.5 Mg Tab PO 0.5 mg BID [facility] Administration Duloxetine HCl 60 mg 03/18/22 13:00 03/21/22 09:27 Duloxetine 30 Mg Cap PO 60 mg QDAY [facility] Administration Melatonin 5 mg 03/18/22 22:00 03/20/22 22:02 Melatonin 5 Mg Tab PO 5 mg QHS [facility] Administration Memantine 10 mg 03/18/22 22:00 03/21/22 09:28 Memantine 10 Mg Tab PO 10 mg BID [facility] Administration Mirtazapine 15 mg 03/18/22 22:00 03/20/22 22:02 Mirtazapine 15 Mg Tab PO 15 mg HS [facility] Administration Pantoprazole Sodium 40 mg 03/18/22 13:00 03/21/22 09:28 Pantoprazole 40 Mg Tab PO 40 mg DAILY [facility] Administration Quetiapine Fumarate 150 mg 03/18/22 22:00 03/20/22 22:02 Quetiapine 100 Mg Tab PO 150 mg HS [facility] Administration
[2022-03-21] MEDS: QUEtiapine 100 MG TAB PO SCH (21:31)
[2022-03-21] MEDS: MIRTAZAPINE 15 MG TAB PO SCH (21:31)
[2022-03-21] MEDS: MELATONIN 5 MG TAB PO SCH (21:31)
--- NOTE | 2022-03-22 09:16 | Progress Note ---
Subjective Date of service: 03/22/22 Principal diagnosis: MDD Subjective Comment: The patient was seen today. She says she feels fine. The patient says her appetite is good. She denies SI/HI or hallucinations. The patient will discharge once all outpatient resources are in place by JUNI to help ensure continuity of her mental wellness. REVIEW OF SYSTEMS Constitutional: Negative for weight loss ENT: Negative for stridor Respiratory: Negative for cough or hemoptysis All other systems reviewed and are negative MENTAL STATUS General Appearance and Behavior: age appropriate, good eye contact, cooperative, calm, pleasant Cooperation: Cooperative Psychomotor Behavior: within normal limits Mood: Calm Affect and affective range: Congruent with stated mood Thought Process: goal oriented Thought Content: reality oriented Speech: Normal volume and Regular rate and rhythm Suicidal Ideation: Denies Homicidal Ideation: Denies HI Hallucinations: Denies Delusions: None elicited Impulse Control: Fair Insight and Judgment: Good Memory: Good Attention: Attentive Orientation: alert and oriented Diagnoses: Major Depressive Disorder Treatment Plan Patient will be admitted for inpatient psychiatric evaluation, medication adjustment and close monitoring The patient's behavior, mood, sleep and appetite will be closely monitored. Patient will be enrolled in individual and group therapeutic sessions and encouraged to attend. Patient will be provided with a safe and structured environment. Patient's physical health needs will be addressed by the Hospitalist. Hospitalist Consulted Labs including CBC, CMP, Lipid profile and Hemoglobin A1C ordered Social Assessment will be completed and the Electrical & Instrumentation Supervisor will work with patient and family to ensure a suitable and safe disposition Medication adjustment will be made as clinically indicated Continue home medications Usual Wellness Christianity/Preservation: The patient agreed on the treatment plan, understood the risk, benefit, alternative treatment, potential consequence of no treatment, and gave informed consent. Legal Status: Involuntary Reaction to Hospitalization: Accepting Case staffed with Dr. Love Medications and Allergies Allergies Allergy/AdvReac Type Severity Reaction Status Date / Time adhesive tape Allergy Unknown Verified 03/18/22 01:11 diazepam [From Valium] Allergy Unknown Verified 03/18/22 01:11 Latex, Natural Rubber Allergy Unknown Verified 03/18/22 01:11 meperidine [From Demerol] Allergy Unknown Verified 03/18/22 01:11 morphine Allergy Unknown Verified 03/18/22 01:11 procaine Allergy Unknown Verified 03/18/22 01:11 Home Medications Medication Instructions Recorded Confirmed Last Taken Type Atorvastatin [Lipitor Tab] 80 mg PO QHS 03/18/22 03/18/22 Unknown History Duloxetine HCl [Drizalma Sprinkle] 60 mg PO DAILY 03/18/22 03/18/22 Unknown History Esomeprazole Magnesium [NexIUM] 40 mg PO QDAY 03/18/22 03/18/22 Unknown History Melatonin [Melatonin 5MG CAP] 5 mg PO HS 03/18/22 03/18/22 Unknown History Memantine [Namenda] 10 mg PO BID 03/18/22 03/18/22 Unknown History Mirtazapine [Remeron] 15 mg PO HS 03/18/22 03/18/22 Unknown History QUEtiapine [SEROquel] 150 mg PO HS 03/18/22 03/18/22 Unknown History cephALEXin [Keflex] 500 mg PO Q12HR 03/18/22 03/18/22 Unknown History clonazePAM [ Klonopin] 0.5 mg PO BID 03/18/22 03/18/22 Unknown History Active Meds: Active Medications Atorvastatin Calcium (Atorvastatin 40 Mg Tab) 80 mg PO QHS [facility] Last Admin: 03/21/22 21:31 Dose: 80 mg Cephalexin (Cephalexin 500 Mg Cap) 500 mg PO Q12HR [facility]; Protocol Stop: 03/29/22 22:00 Last Admin: 03/21/22 21:30 Dose: 500 mg Clonazepam (Clonazepam 0.5 Mg Tab) 0.5 mg PO BID [facility] Last Admin: 03/21/22 21:30 Dose: 0.5 mg Duloxetine HCl (Duloxetine 30 Mg Cap) 60 mg PO QDAY [facility] Last Admin: 03/21/22 09:27 Dose: 60 mg Melatonin (Melatonin 5 Mg Tab) 5 mg PO QHS [facility] Last Admin: 03/21/22 21:31 Dose: 5 mg Memantine (Memantine 10 Mg Tab) 10 mg PO BID [facility] Last Admin: 03/21/22 21:31 Dose: 10 mg Mirtazapine (Mirtazapine 15 Mg Tab) 15 mg PO [facility] Last Admin: 03/21/22 21:31 Dose: 15 mg Pantoprazole Sodium (Pantoprazole 40 Mg Tab) 40 mg PO DAILY [facility] Last Admin: 03/21/22 09:28 Dose: 40 mg Quetiapine Fumarate (Quetiapine 100 Mg Tab) 150 mg PO [facility] Last Admin: 03/21/22 21:31 Dose: 150 mg Results - Results Labs/Vitals: Laboratory Last Values WBC 8.1 K/mm3 (4.5-11.0) 03/18/22 13:16 RBC 4.49 M/mm3 (3.65-5.03) 03/18/22 13:16 Hgb 13.5 gm/dl (10.1-14.3) 03/18/22 13:16 Hct 40.5 % (30.3-42.9) 03/18/22 13:16 MCV 90 fl (79-97) 03/18/22 13:16 MCH 30 pg (28-32) 03/18/22 13:16 MCHC 33 % (30-34) 03/18/22 13:16 RDW 15.1 % (13.2-15.2) 03/18/22 13:16 Plt Count 137 K/mm3 (140-440) L 03/18/22 13:16 Lymph % (Auto) 17.1 % (13.4-35.0) 03/18/22 13:16 [place] % (Auto) 9.2 % (0.0-7.3) H 03/18/22 13:16 Eos % (Auto) 0.1 % (0.0-4.3) 03/18/22 13:16 Baso % (Auto) 0.4 % (0.0-1.8) 03/18/22 13:16 Lymph # (Auto) 1.4 K/mm3 (1.2-5.4) 03/18/22 13:16 [place] # (Auto) 0.7 K/mm3 (0.0-0.8) 03/18/22 13:16 Eos # (Auto) 0.0 K/mm3 (0.0-0.4) 03/18/22 13:16 Baso # (Auto) 0.0 K/mm3 (0.0-0.1) 03/18/22 13:16 Seg Neutrophils % 73.2 % (40.0-70.0) H 03/18/22 13:16 Seg Neutrophils # 5.9 K/mm3 (1.8-7.7) 03/18/22 13:16 Sodium 140 mmol/L (137-145) 03/18/22 13:16 Potassium 5.0 mmol/L (3.6-5.0) 03/18/22 13:16 Chloride 104.6 mmol/L (98-107) 03/18/22 13:16 Carbon Dioxide 24 mmol/L (22-30) 03/18/22 13:16 Anion Gap 16 mmol/L 03/18/22 13:16 BUN 23 mg/dL (7-17) H 03/18/22 13:16 Creatinine 1.1 mg/dL (0.6-1.2) 03/18/22 13:16 Estimated GFR 47 ml/min 03/18/22 13:16 BUN/Creatinine Ratio 21 % 03/18/22 13:16 Glucose 99 mg/dL (65-100) 03/18/22 13:16 POC Glucose 89 mg/dL (70-105) 03/18/22 06:35 Hemoglobin A1c 6.6 % (4-6) H 03/18/22 13:16 Calcium 9.8 mg/dL (8.4-10.2) 03/18/22 13:16 Total Bilirubin 0.70 mg/dL (0.1-1.2) 03/18/22 13:16 AST 62 units/L (5-40) H 03/18/22 13:16 ALT 50 units/L (7-56) 03/18/22 13:16 Alkaline Phosphatase 219 units/L (35-129) H 03/18/22 13:16 Total Protein 7.7 g/dL (6.3-8.2) 03/18/22 13:16 Albumin 4.4 g/dL (3.9-5) 03/18/22 13:16 Albumin/Globulin Ratio 1.3 % 03/18/22 13:16 Triglycerides 111 mg/dL (2-149) 03/18/22 13:16 Cholesterol 141 mg/dL (50-199) 03/18/22 13:16 LDL Cholesterol Direct 71 mg/dL (50-130) 03/18/22 13:16 HDL Cholesterol 50 mg/dL (40-59) 03/18/22 13:16 Cholesterol/HDL Ratio 2.82 % 03/18/22 13:16 TSH 1.010 mlU/mL (0.270-4.200) 03/18/22 13:16 Last Vital Signs Temp 98.4 F 03/21/22 21:05 Pulse 18 L 03/21/22 21:05 Resp 18 03/21/22 21:05 BP 130/75 03/21/22 21:05 Pulse Ox 97 03/21/22 21:05
[2022-03-22] MEDS: clonazePAM 0.5 MG TAB PO SCH ×2 (10:42→21:40)
[2022-03-22] MEDS: MEMANTINE 10 MG TAB PO SCH ×2 (10:42→21:42)
[2022-03-22] MEDS: DULoxetine 30 MG CAP PO SCH (10:42)
[2022-03-22] MEDS: PANTOPRAZOLE 40 MG TAB PO SCH (10:42)
[2022-03-22] MEDS: cephALEXin 500 MG CAP PO SCH ×2 (10:43→21:41)
--- NOTE | 2022-03-22 11:58 | Event Note ---
Date: 03/22/22 Spoke with the patient's son, Harman. Discussed the patient's progress, treatment plan and discharge plan. He says he thinks that the patient just hit a low at the time she made the statement. He says the patient has a history of Bipolar Disorder. I informed him that the patient has expressed feeling well, and states she did not meant the statement she made about killing herself. Informed him that the patient will discharge tomorrow. Harman is in agreement with this and says he or his brother plans to pick the patient up.
--- NOTE | 2022-03-22 12:15 | Progress Note ---
Assessment and Plan - Patient Problems (1) Vascular dementia with behavior disturbance Current Visit: Yes Status: Acute Plan to address problem: Verbal prompting, verbal redirection, benzodiazepine therapy as clinically indicated. (2) Cerebral atherosclerosis Current Visit: Yes Status: Acute Plan to address problem: Risk factor reduction, antiplatelet therapy as clinic indicated. (3) Hyperlipidemia Current Visit: Yes Status: Acute Qualifiers: Hyperlipidemia type: mixed hyperlipidemia Qualified Code(s): E78.2 - Mixed hyperlipidemia Plan to address problem: Low-cholesterol diet, supportive care, statin therapy as clinically indicated. (4) GERD (gastroesophageal reflux disease) Current Visit: Yes Status: Acute Qualifiers: Esophagitis presence: without esophagitis Qualified Code(s): K21.9 - Gastro-esophageal reflux disease without esophagitis Plan to address problem: PPI therapy, supportive care. (5) Major depression Current Visit: Yes Status: Acute Plan to address problem: Continue medical management, cognitive behavioral therapy, supportive care. (6) Generalized anxiety disorder Current Visit: Yes Status: Acute Plan to address problem: Benzodiazepine therapy as clinically indicated, verbal redirection. (7) Advance care planning Current Visit: Yes Status: Acute Plan to address problem: Disease education done, care plan discussed, diagnoses discussed, prognosis discussed, patient is full code, +30 minutes. (8) Preventative health care Current Visit: Yes Status: Acute Plan to address problem: Patient counseled regarding home safety, outpatient follow-up with primary care physician for all age and risk factor appropriate screening test. +30 minutes. History Interval history: 86 YO Female with Vascular Dementia with Behavioral Disturbance, Cerebral Atherosclerosis, HLD, GERD, GIA, MDD admitted to [facility] for psychiatric stabilization. Consult placed by Dr. Martin for medical managem ent. Patient seen and evaluated in the recreation room. Patient appears to be at baseline level of cognition and function. No reported nursing events. Hospitalist Physical - Constitutional Vitals: Temp Pulse Resp BP Pulse Ox 98.0 F 95 H 18 119/60 97 03/22/22 09:35 03/22/22 09:35 03/22/22 09:35 03/22/22 09:35 03/22/22 09:35 General appearance: Present: no acute distress, well-nourished, other (Cheerful) - EENT Eyes: Present: PERRL ENT: hearing decreased - Neck Neck: Present: supple - Respiratory Respiratory effort: normal Respiratory: bilateral: diminished - Cardiovascular Rhythm: regular Heart Sounds: Present: S1 & S2 - Extremities Extremities: no ischemia Peripheral Pulses: within normal limits - Abdominal General gastrointestinal: soft, non-tender, non-distended - Integumentary Integumentary: Present: clear, dry - Psychiatric Psychiatric: cooperative - Neurologic Neurologic: CNII-XII intact Results - Labs CBC & Chem 7: 03/18/22 13:16 03/18/22 13:16 Labs: Laboratory Last Values WBC 8.1 K/mm3 (4.5-11.0) 03/18/22 13:16 RBC 4.49 M/mm3 (3.65-5.03) 03/18/22 13:16 Hgb 13.5 gm/dl (10.1-14.3) 03/18/22 13:16 Hct 40.5 % (30.3-42.9) 03/18/22 13:16 MCV 90 fl (79-97) 03/18/22 13:16 MCH 30 pg (28-32) 03/18/22 13:16 MCHC 33 % (30-34) 03/18/22 13:16 RDW 15.1 % (13.2-15.2) 03/18/22 13:16 Plt Count 137 K/mm3 (140-440) L 03/18/22 13:16 Lymph % (Auto) 17.1 % (13.4-35.0) 03/18/22 13:16 [place] % (Auto) 9.2 % (0.0-7.3) H 03/18/22 13:16 Eos % (Auto) 0.1 % (0.0-4.3) 03/18/22 13:16 Baso % (Auto) 0.4 % (0.0-1.8) 03/18/22 13:16 Lymph # (Auto) 1.4 K/mm3 (1.2-5.4) 03/18/22 13:16 [place] # (Auto) 0.7 K/mm3 (0.0-0.8) 03/18/22 13:16 Eos # (Auto) 0.0 K/mm3 (0.0-0.4) 03/18/22 13:16 Baso # (Auto) 0.0 K/mm3 (0.0-0.1) 03/18/22 13:16 Seg Neutrophils % 73.2 % (40.0-70.0) H 03/18/22 13:16 Seg Neutrophils # 5.9 K/mm3 (1.8-7.7) 03/18/22 13:16 Sodium 140 mmol/L (137-145) 03/18/22 13:16 Potassium 5.0 mmol/L (3.6-5.0) 03/18/22 13:16 Chloride 104.6 mmol/L (98-107) 03/18/22 13:16 Carbon Dioxide 24 mmol/L (22-30) 03/18/22 13:16 Anion Gap 16 mmol/L 03/18/22 13:16 BUN 23 mg/dL (7-17) H 03/18/22 13:16 Creatinine 1.1 mg/dL (0.6-1.2) 03/18/22 13:16 Estimated GFR 47 ml/min 03/18/22 13:16 BUN/Creatinine Ratio 21 % 03/18/22 13:16 Glucose 99 mg/dL (65-100) 03/18/22 13:16 POC Glucose 89 mg/dL (70-105) 03/18/22 06:35 Hemoglobin A1c 6.6 % (4-6) H 03/18/22 13:16 Calcium 9.8 mg/dL (8.4-10.2) 03/18/22 13:16 Total Bilirubin 0.70 mg/dL (0.1-1.2) 03/18/22 13:16 AST 62 units/L (5-40) H 03/18/22 13:16 ALT 50 units/L (7-56) 03/18/22 13:16 Alkaline Phosphatase 219 units/L (35-129) H 03/18/22 13:16 Total Protein 7.7 g/dL (6.3-8.2) 03/18/22 13:16 Albumin 4.4 g/dL (3.9-5) 03/18/22 13:16 Albumin/Globulin Ratio 1.3 % 03/18/22 13:16 Triglycerides 111 mg/dL (2-149) 03/18/22 13:16 Cholesterol 141 mg/dL (50-199) 03/18/22 13:16 LDL Cholesterol Direct 71 mg/dL (50-130) 03/18/22 13:16 HDL Cholesterol 50 mg/dL (40-59) 03/18/22 13:16 Cholesterol/HDL Ratio 2.82 % 03/18/22 13:16 TSH 1.010 mlU/mL (0.270-4.200) 03/18/22 13:16 Mcqueen/IV: Voiding Method Toilet Active Medications - Current Medications Current Medications: Generic Name Dose Route Start Last Admin Trade Name Katia PRN Reason Stop Dose Admin Atorvastatin Calcium 80 mg 03/18/22 22:00 03/21/22 21:31 Atorvastatin 40 Mg Tab PO 80 mg QHS [facility] Administration Cephalexin 500 mg 03/20/22 10:00 03/22/22 10:43 Cephalexin 500 Mg Cap PO 03/29/22 22:00 500 mg Q12HR [facility] Administration Protocol Clonazepam 0.5 mg 03/18/22 14:00 03/22/22 10:42 Clonazepam 0.5 Mg Tab PO 0.5 mg BID [facility] Administration Duloxetine HCl 60 mg 03/18/22 13:00 03/22/22 10:42 Duloxetine 30 Mg Cap PO 60 mg QDAY [facility] Administration Melatonin 5 mg 03/18/22 22:00 03/21/22 21:31 Melatonin 5 Mg Tab PO 5 mg QHS [facility] Administration Memantine 10 mg 03/18/22 22:00 03/22/22 10:42 Memantine 10 Mg Tab PO 10 mg BID [facility] Administration Mirtazapine 15 mg 03/18/22 22:00 03/21/22 21:31 Mirtazapine 15 Mg Tab PO 15 mg HS [facility] Administration Pantoprazole Sodium 40 mg 03/18/22 13:00 03/22/22 10:42 Pantoprazole 40 Mg Tab PO 40 mg DAILY [facility] Administration Quetiapine Fumarate 150 mg 03/18/22 22:00 03/21/22 21:31 Quetiapine 100 Mg Tab PO 150 mg HS [facility] Administration
[2022-03-22] MEDS: QUEtiapine 100 MG TAB PO SCH (21:40)
[2022-03-22] MEDS: MELATONIN 5 MG TAB PO SCH (21:41)
[2022-03-22] MEDS: MIRTAZAPINE 15 MG TAB PO SCH (21:42)
[2022-03-23] MEDS: clonazePAM 0.5 MG TAB PO SCH ×2 (09:58→21:19)
[2022-03-23] MEDS: DULoxetine 30 MG CAP PO SCH (09:58)
[2022-03-23] MEDS: MEMANTINE 10 MG TAB PO SCH ×2 (09:58→21:19)
[2022-03-23] MEDS: PANTOPRAZOLE 40 MG TAB PO SCH (09:58)
[2022-03-23] MEDS: cephALEXin 500 MG CAP PO SCH ×2 (10:02→21:19)
--- NOTE | 2022-03-23 15:24 | Progress Note ---
Subjective Date of service: 03/23/22 Principal diagnosis: MDD Subjective Comment: The patient was seen today. She is smiling and is pleasant. She says she feels okay. She denies SI/HI or hallucinations. The patient will discharge once all outpatient resources are in place by JUNI to help ensure continuity of her mental wellness. REVIEW OF SYSTEMS Constitutional: Negative for weight loss ENT: Negative for stridor Respiratory: Negative for cough or hemoptysis All other systems reviewed and are negative MENTAL STATUS General Appearance and Behavior: age appropriate, good eye contact, cooperative, calm, pleasant Cooperation: Cooperative Psychomotor Behavior: within normal limits Mood: Calm Affect and affective range: Congruent with stated mood Thought Process: goal oriented Thought Content: reality oriented Speech: Normal volume and Regular rate and rhythm Suicidal Ideation: Denies Homicidal Ideation: Denies HI Hallucinations: Denies Delusions: None elicited Impulse Control: Fair Insight and Judgment: Good Memory: Good Attention: Attentive Orientation: alert and oriented Diagnoses: Major Depressive Disorder Treatment Plan Patient will be admitted for inpatient psychiatric evaluation, medication adjustment and close monitoring The patient's behavior, mood, sleep and appetite will be closely monitored. Patient will be enrolled in individual and group therapeutic sessions and encouraged to attend. Patient will be provided with a safe and structured environment. Patient's physical health needs will be addressed by the Hospitalist. Hospitalist Consulted Labs including CBC, CMP, Lipid profile and Hemoglobin A1C ordered Social Assessment will be completed and the Disability Benefits Specialist will work with patient and family to ensure a suitable and safe disposition Medication adjustment will be made as clinically indicated Continue home medications Usual Wellness Amish/Preservation: The patient agreed on the treatment plan, understood the risk, benefit, alternative treatment, potential consequence of no treatment, and gave informed consent. Legal Status: Involuntary Reaction to Hospitalization: Accepting Case staffed with Dr. Love Medications and Allergies Allergies Allergy/AdvReac Type Severity Reaction Status Date / Time adhesive tape Allergy Unknown Verified 03/18/22 01:11 diazepam [From Valium] Allergy Unknown Verified 03/18/22 01:11 Latex, Natural Rubber Allergy Unknown Verified 03/18/22 01:11 meperidine [From Demerol] Allergy Unknown Verified 03/18/22 01:11 morphine Allergy Unknown Verified 03/18/22 01:11 procaine Allergy Unknown Verified 03/18/22 01:11 Home Medications Medication Instructions Recorded Confirmed Last Taken Type Atorvastatin [Lipitor] 80 mg PO QHS 03/18/22 03/18/22 Unknown History Esomeprazole Magnesium [NexIUM] 40 mg PO QDAY 03/18/22 03/18/22 Unknown History Memantine 10 mg PO BID 03/18/22 03/18/22 Unknown History Mirtazapine [Remeron] 15 mg PO HS 03/18/22 03/18/22 Unknown History QUEtiapine [SEROquel] 150 mg PO HS 03/18/22 03/18/22 Unknown History cephALEXin [Keflex] 500 mg PO Q12HR 03/18/22 03/18/22 Unknown History clonazePAM [KlonoPIN] 0.5 mg PO BID 03/18/22 03/18/22 Unknown History Duloxetine HCl [Drizalma Sprinkle] 60 mg PO DAILY #30 03/22/22 Unknown Rx Melatonin [Melatonin 5MG CAP] 5 mg PO HS #30 cap 03/22/22 Unknown Rx Mirtazapine [Remeron 15mg TAB] 15 mg PO HS #30 tablet 03/22/22 Unknown Rx Active Meds: Active Medications Atorvastatin Calcium (Atorvastatin 40 Mg Tab) 80 mg PO QHS [facility] Last Admin: 03/22/22 22:34 Dose: 80 mg Cephalexin (Cephalexin 500 Mg Cap) 500 mg PO Q12HR [facility]; Protocol Stop: 03/29/22 22:00 Last Admin: 03/23/22 10:02 Dose: 500 mg Clonazepam (Clonazepam 0.5 Mg Tab) 0.5 mg PO BID [facility] Last Admin: 03/23/22 09:58 Dose: 0.5 mg Duloxetine HCl (Duloxetine 30 Mg Cap) 60 mg PO QDAY [facility] Last Admin: 03/23/22 09:58 Dose: 60 mg Melatonin (Melatonin 5 Mg Tab) 5 mg PO QHS [facility] Last Admin: 03/22/22 21:41 Dose: 5 mg Memantine (Memantine 10 Mg Tab) 10 mg PO BID [facility] Last Admin: 03/23/22 09:58 Dose: 10 mg Mirtazapine (Mirtazapine 15 Mg Tab) 15 mg PO HS [facility] Last Admin: 03/22/22 21:42 Dose: 15 mg Pantoprazole Sodium (Pantoprazole 40 Mg Tab) 40 mg PO DAILY [facility] Last Admin: 03/23/22 09:58 Dose: 40 mg Quetiapine Fumarate (Quetiapine 100 Mg Tab) 150 mg PO HS [facility] Last Admin: 03/22/22 21:40 Dose: 150 mg Results - Results Labs/Vitals: Laboratory Last Values WBC 8.1 K/mm3 (4.5-11.0) 03/18/22 13:16 RBC 4.49 M/mm3 (3.65-5.03) 03/18/22 13:16 Hgb 13.5 gm/dl (10.1-14.3) 03/18/22 13:16 Hct 40.5 % (30.3-42.9) 03/18/22 13:16 MCV 90 fl (79-97) 03/18/22 13:16 MCH 30 pg (28-32) 03/18/22 13:16 MCHC 33 % (30-34) 03/18/22 13:16 RDW 15.1 % (13.2-15.2) 03/18/22 13:16 Plt Count 137 K/mm3 (140-440) L 03/18/22 13:16 Lymph % (Auto) 17.1 % (13.4-35.0) 03/18/22 13:16 [place] % (Auto) 9.2 % (0.0-7.3) H 03/18/22 13:16 Eos % (Auto) 0.1 % (0.0-4.3) 03/18/22 13:16 Baso % (Auto) 0.4 % (0.0-1.8) 03/18/22 13:16 Lymph # (Auto) 1.4 K/mm3 (1.2-5.4) 03/18/22 13:16 [place] # (Auto) 0.7 K/mm3 (0.0-0.8) 03/18/22 13:16 Eos # (Auto) 0.0 K/mm3 (0.0-0.4) 03/18/22 13:16 Baso # (Auto) 0.0 K/mm3 (0.0-0.1) 03/18/22 13:16 Seg Neutrophils % 73.2 % (40.0-70.0) H 03/18/22 13:16 Seg Neutrophils # 5.9 K/mm3 (1.8-7.7) 03/18/22 13:16 Sodium 140 mmol/L (137-145) 03/18/22 13:16 Potassium 5.0 mmol/L (3.6-5.0) 03/18/22 13:16 Chloride 104.6 mmol/L (98-107) 03/18/22 13:16 Carbon Dioxide 24 mmol/L (22-30) 03/18/22 13:16 Anion Gap 16 mmol/L 03/18/22 13:16 BUN 23 mg/dL (7-17) H 03/18/22 13:16 Creatinine 1.1 mg/dL (0.6-1.2) 03/18/22 13:16 Estimated GFR 47 ml/min 03/18/22 13:16 BUN/Creatinine Ratio 21 % 03/18/22 13:16 Glucose 99 mg/dL (65-100) 03/18/22 13:16 POC Glucose 89 mg/dL (70-105) 03/18/22 06:35 Hemoglobin A1c 6.6 % (4-6) H 03/18/22 13:16 Calcium 9.8 mg/dL (8.4-10.2) 03/18/22 13:16 Total Bilirubin 0.70 mg/dL (0.1-1.2) 03/18/22 13:16 AST 62 units/L (5-40) H 03/18/22 13:16 ALT 50 units/L (7-56) 03/18/22 13:16 Alkaline Phosphatase 219 units/L (35-129) H 03/18/22 13:16 Total Protein 7.7 g/dL (6.3-8.2) 03/18/22 13:16 Albumin 4.4 g/dL (3.9-5) 03/18/22 13:16 Albumin/Globulin Ratio 1.3 % 03/18/22 13:16 Triglycerides 111 mg/dL (2-149) 03/18/22 13:16 Cholesterol 141 mg/dL (50-199) 03/18/22 13:16 LDL Cholesterol Direct 71 mg/dL (50-130) 03/18/22 13:16 HDL Cholesterol 50 mg/dL (40-59) 03/18/22 13:16 Cholesterol/HDL Ratio 2.82 % 03/18/22 13:16 TSH 1.010 mlU/mL (0.270-4.200) 03/18/22 13:16 Last Vital Signs Temp 97.9 F 03/23/22 07:45 Pulse 90 03/23/22 07:45 Resp 18 03/23/22 07:45 BP 123/75 03/23/22 07:45 Pulse Ox 94 03/23/22 07:45
[2022-03-23 20:51] VITALS: BP 142/72
[2022-03-23] MEDS: MIRTAZAPINE 15 MG TAB PO SCH (21:19)
[2022-03-23] MEDS: QUEtiapine 100 MG TAB PO SCH (21:20)
[2022-03-23] MEDS: MELATONIN 5 MG TAB PO SCH (21:20)
--- NOTE | 2022-03-24 08:24 | Discharge Summary ---
Providers - Providers Date of Admission: 03/18/22 00:54 Date of discharge: 03/24/22 Attending physician: CRISTAL BAINS MD 03/18/22 00:29 Consult to Physician [CONS] Routine Comment: Consulting Provider: BILLIE NELSON Physician Instructions: Reason For Exam: H & P Primary care physician: CLUB DIRECTOR Hospitalization Reason for admission: SI Admitting Diagnosis: F33.9 - MAJOR DEPRESSIVE DISORDER, RECURRENT, UNSPECIFIED Hospital course: The patient was provided inpatient psychiatric treatment with safe and supportive care, medication adjustment, adverse effect monitoring, medical evaluations, medical treatments, assessment and psycho-education. The patient's mood, cognition, behavior, moral support are improved and stabilized. St the time of discharge, the patient had no endangering behavior and no debilitating adverse effects. The patient agreed on potential consequences of no treatment and gave informed consent. 03/24 The patient was excited to be going home today. She is calm, cooperative and pleasant. She denies SI/HI or hallucinations. She will discharge with her son today. Disposition: 01 HOME / SELF CARE / HOMELESS Time spent for discharge: 40 Allergies/Adverse Reactions: Allergies adhesive tape Allergy (Verified 03/18/22 01:11) Unknown diazepam [From Valium] Allergy (Verified 03/18/22 01:11) Unknown Latex, Natural Rubber Allergy (Verified 03/18/22 01:11) Unknown meperidine [From Demerol] Allergy (Verified 03/18/22 01:11) Unknown morphine Allergy (Verified 03/18/22 01:11) Unknown procaine Allergy (Verified 03/18/22 01:11) Unknown Vital Signs: Last Vital Signs Temp 98.5 F 03/23/22 19:22 Pulse 94 H 03/23/22 19:22 Resp 18 03/23/22 19:22 BP 142/72 03/23/22 19:22 Pulse Ox 97 03/23/22 19:22 Last Lab: Laboratory Last Values WBC 8.1 K/mm3 (4.5-11.0) 03/18/22 13:16 RBC 4.49 M/mm3 (3.65-5.03) 03/18/22 13:16 Hgb 13.5 gm/dl (10.1-14.3) 03/18/22 13:16 Hct 40.5 % (30.3-42.9) 03/18/22 13:16 MCV 90 fl (79-97) 03/18/22 13:16 MCH 30 pg (28-32) 03/18/22 13:16 MCHC 33 % (30-34) 03/18/22 13:16 RDW 15.1 % (13.2-15.2) 03/18/22 13:16 Plt Count 137 K/mm3 (140-440) L 03/18/22 13:16 Lymph % (Auto) 17.1 % (13.4-35.0) 03/18/22 13:16 [place] % (Auto) 9.2 % (0.0-7.3) H 03/18/22 13:16 Eos % (Auto) 0.1 % (0.0-4.3) 03/18/22 13:16 Baso % (Auto) 0.4 % (0.0-1.8) 03/18/22 13:16 Lymph # (Auto) 1.4 K/mm3 (1.2-5.4) 03/18/22 13:16 [place] # (Auto) 0.7 K/mm3 (0.0-0.8) 03/18/22 13:16 Eos # (Auto) 0.0 K/mm3 (0.0-0.4) 03/18/22 13:16 Baso # (Auto) 0.0 K/mm3 (0.0-0.1) 03/18/22 13:16 Seg Neutrophils % 73.2 % (40.0-70.0) H 03/18/22 13:16 Seg Neutrophils # 5.9 K/mm3 (1.8-7.7) 03/18/22 13:16 Sodium 140 mmol/L (137-145) 03/18/22 13:16 Potassium 5.0 mmol/L (3.6-5.0) 03/18/22 13:16 Chloride 104.6 mmol/L (98-107) 03/18/22 13:16 Carbon Dioxide 24 mmol/L (22-30) 03/18/22 13:16 Anion Gap 16 mmol/L 03/18/22 13:16 BUN 23 mg/dL (7-17) H 03/18/22 13:16 Creatinine 1.1 mg/dL (0.6-1.2) 03/18/22 13:16 Estimated GFR 47 ml/min 03/18/22 13:16 BUN/Creatinine Ratio 21 % 03/18/22 13:16 Glucose 99 mg/dL (65-100) 03/18/22 13:16 POC Glucose 89 mg/dL (70-105) 03/18/22 06:35 Hemoglobin A1c 6.6 % (4-6) H 03/18/22 13:16 Calcium 9.8 mg/dL (8.4-10.2) 03/18/22 13:16 Total Bilirubin 0.70 mg/dL (0.1-1.2) 03/18/22 13:16 AST 62 units/L (5-40) H 03/18/22 13:16 ALT 50 units/L (7-56) 03/18/22 13:16 Alkaline Phosphatase 219 units/L (35-129) H 03/18/22 13:16 Total Protein 7.7 g/dL (6.3-8.2) 03/18/22 13:16 Albumin 4.4 g/dL (3.9-5) 03/18/22 13:16 Albumin/Globulin Ratio 1.3 % 03/18/22 13:16 Triglycerides 111 mg/dL (2-149) 03/18/22 13:16 Cholesterol 141 mg/dL (50-199) 03/18/22 13:16 LDL Cholesterol Direct 71 mg/dL (50-130) 03/18/22 13:16 HDL Cholesterol 50 mg/dL (40-59) 03/18/22 13:16 Cholesterol/HDL Ratio 2.82 % 03/18/22 13:16 TSH 1.010 mlU/mL (0.270-4.200) 03/18/22 13:16 Core Measure Documentation - Palliative Care Palliative Care/ Comfort Measures: Not Applicable - Core Measures Any of the following diagnoses?: none Exam - Constitutional Vitals: Temp Pulse Resp BP Pulse Ox 98.5 F 94 H 18 142/72 97 03/23/22 19:22 03/23/22 19:22 03/23/22 19:22 03/23/22 19:22 03/23/22 19:22 General appearance: Present: no acute distress - EENT Eyes: Present: PERRL, EOM intact ENT: hearing intact, clear oral mucosa - Neck Neck: Present: normal ROM - Respiratory Respiratory effort: normal Plan Activity: advance as tolerated Weight Bearing Status: Weight Bear as Tolerated Care Plan Goals: Maintain good and stable mental health Plan of Treatment: The patient should be compliant with medications, not to use drugs, and not to drink alcohol. The patient understands that if suicidal ideas, homicidal ideas or any endangering feeling arise, the patient should seek assistance including, but not limited to crisis hotline, and emergency room. Assessment: Major Depressive Disorder Follow up with: PRIMARY CARE, [Primary Care Provider] - 7 Days Prescriptions: Duloxetine HCl [Drizalma Sprinkle] 60 mg PO DAILY #30 Melatonin [Melatonin 5MG CAP] 5 mg PO HS #30 cap Mirtazapine [Remeron 15mg TAB] 15 mg PO HS #30 tablet
[2022-03-24] MEDS: MEMANTINE 10 MG TAB PO SCH (11:15)
[2022-03-24] MEDS: PANTOPRAZOLE 40 MG TAB PO SCH (11:15)
[2022-03-24] MEDS: clonazePAM 0.5 MG TAB PO SCH (11:15)
[2022-03-24] MEDS: DULoxetine 30 MG CAP PO SCH (11:15)
[2022-03-24] MEDS: cephALEXin 500 MG CAP PO SCH (11:15)
== END 2022-03-24 12:00 | disposition home or self-care (01) | DRG 881 ==
LOC: 3A 17:04 → UNDOADMIN 17:04 → 5A 03-18 00:54
PROVIDERS: ADMIT Psychiatry & Neurology Psychiatry; ATTEND Psychiatry & Neurology Psychiatry
DX: F32.9 Major depressive disorder, single episode, unspecified (principal); F01.51 Vascular dementia, unspecified severity, with behavioral disturbance; F03.90 Unspecified dementia, unspecified severity, without behavioral disturbance, psychotic disturbance, mood disturbance, and anxiety; K21.9 Gastro-esophageal reflux disease without esophagitis; E78.2 Mixed hyperlipidemia; I67.2 Cerebral atherosclerosis; F41.1 Generalized anxiety disorder; Z91.040 Latex allergy status; Z88.5 Allergy status to narcotic agent; Z88.8 Allergy status to other drugs, medicaments and biological substances; Z91.048 Other nonmedicinal substance allergy status
CPT/HCPCS: 36415; 80053; 80061; 82962; 83036; 84443; 85025; G0378